=== PATIENT | female | born 1975 | race Caucasian/White ===

== ENCOUNTER → 2021-01-30 | Outpatient (CLI) | payer OTHER | END | disposition home or self-care (01) | LOC: RAD 08:44 | PROVIDERS: ATTEND Internal Medicine Hematology & Oncology | DX: C85.91 Non-Hodgkin lymphoma, unspecified, lymph nodes of head, face, and neck (principal) | CPT/HCPCS: 36573; C1751 ==

== ENCOUNTER 2021-02-16 19:53 | Emergency (ER) | payer OTHER ==
[~2021-02-16] VITALS: Ht 167.6 cm; Wt 62.1 kg
[2021-02-16] MEDS ORDERED: SODIUM CHLORIDE FLUSH 10ML SYR IVF ONE (20:30)
[2021-02-16 20:42] LABS: BASOPHILS % (AUTO) 0 % (0-1); EOSINOPHILS % (AUTO) 0 % (1-7); LYMPHOCYTES % (AUTO) 39 % (22-44); MEAN CORPUSCULAR HEMOGLOBIN 32.6 pg (27.0-34.8); MEAN CORPUSCULAR HGB CONC 35.1 g/dL (32.4-35.8); MEAN PLATELET VOLUME 7.1 fL (7.4-10.4); MONOCYTES % (AUTO) 9 % (2-9); NEUTROPHILS % (AUTO) 52 % (42-75); PLATELET COUNT 130 x10^3/uL (130-400); RED BLOOD COUNT 2.28 x10^6/uL (3.82-5.3); RED CELL DISTRIBUTION WIDTH 18.8 % (9.6-15.2)
[2021-02-16 20:53] LABS: ALANINE AMINOTRANSFERASE 23 U/L (12-78); ALBUMIN 2.5 g/dL (3.4-5.0); ANION GAP 9 mmol/L (5-15); CALCIUM 9.4 mg/dL (8.5-10.1); CHLORIDE 101 mmol/L (98-107)
[2021-02-16 20:55] LABS: ALKALINE PHOSPHATASE 32 U/L (45-117); BILIRUBIN,TOTAL 0.2 mg/dL (0.2-1.0); TOTAL PROTEIN 11.4 g/dL (6.4-8.2)
[2021-02-16 20:56] LABS: INTERNATIONAL NORMALIZED RATIO 1.11 (0.93-1.1); PROTHROMBIN TIME 11.9 Seconds (9.6-11.5)
[2021-02-16 21:24] LABS: MD MORPH REVIEW ONLY
[2021-02-16 21:25] LABS: ANISOCYTOSIS 1+; HYPOCHROMIA 1+
[2021-02-16 21:26] LABS: <PLATELET ESTIMATE> ADEQUATE; TOXIC GRAN 1+
[2021-02-16 21:27] LABS: SMALL PLATELETS 1+
--- NOTE | 2021-02-16 23:00 | NUR ---
[facility]OD [facility]ANK CALLED TO GET UPDATE ON BLOOD. PER BLOOD BANK ANTIGEN TESTING WILL TAKE AT LEAST [address] MORE [address] PT AND DR. PUGH AWARE. PT STATING SHE MAY WANT TO LEAVE BEFORE TRANSFUSION.
--- NOTE | 2021-02-16 23:28 | NUR ---
DR. PUGH AT BEDSIDE TO DISCUSS POC WITH PATIENT.
[2021-02-16 23:36] VITALS: BP 110/74
== END 2021-02-16 23:37 | disposition home or self-care (01) ==
LOC: ED 20:41
DX: D64.89 Other specified anemias (principal); R06.02 Shortness of breath; R53.83 Other fatigue; R00.2 Palpitations
CPT/HCPCS: 36415; 80053; 85025; 85610; 85730; 86850; 86870; 86900; 86923; 99283